=== PATIENT | female | born 1965 | race Caucasian/White ===

== ENCOUNTER 2020-07-11 18:30 | Emergency (ER) | payer OTHER, SELFPAY ==
[2020-07-11 18:37] VITALS: BP 211/101; PULSE 101
[2020-07-11 18:45] VITALS: BP 162/86; PULSE 88; RESP 18; TEMP 36.4; O2SAT 97; BMI 38.7
[2020-07-11 20:21] VITALS: RESP 17
[2020-07-11] MEDS: predniSONE 20 MG TABLET 60 MG PO (20:21)
[2020-07-11] MEDS: Morphine Sulfate 4 MG/ML CARTRIDGE IVPUSH (20:21)
[2020-07-11] MEDS: Lidocaine 4 % Patch ADH..PATCH 2 PATCH TRANSDERMA (20:23)
[2020-07-11 20:35] VITALS: BP 155/57; PULSE 87; RESP 17; O2SAT 96
--- NOTE | 2020-07-11 20:48 | ED.BACK ---
HPI - Back Pain/Injury General Chief Complaint: Back Pain/Injury Stated Complaint: back pain Time Seen by Provider: 07/11/20 19:58 Source: patient, family, EMS and RN notes reviewed Mode of arrival: ambulatory Limitations: no limitations History of Present Illness HPI Narrative: 55-year-old female here today for complaints of lower back pain. Patient was seen at [facility] yesterday where she had MRI done. PCPs notes state that patient will need referral to Neurosurgery for disc herniations. Patient denies urinary or fecal incontinence, reports to have some tingling to her bilateral lower extremities. Denies any fever or chills. Denies any trauma since yesterday. Patient was given script for gabapentin, Percocet and cyclobenzaprine. She has been taking Percocet every 4 hours with some relief. Reports that cyclobenzaprine and gabapentin not helping. Denies any other symptoms. Related Data Previous Rx's Medication Instructions Recorded camphor-methyl salicyl-menthol 1 patch TOPICAL DAILY 5 Days ea 07/11/20 [Salonpas] prednisone 60 mg PO DAILY #12 tab 07/11/20 Allergies Allergy/AdvReac Type Severity Reaction Status Date / Time doxycycline AdvReac Depression Verified 07/11/20 19:04 Review of Systems Review of Systems: Constitutional : No Weight loss, No Fever, No Chills, No Night Sweats, No Fatigue, No Malaise ENT/Mouth : No Hearing loss, No Ear Pain, No Nasal Congestion, No Sinus Pain, No Hoarseness, No sore throat, No Rhinorrhea, No Swallowing Difficulty Eyes: No Eye Pain, No Swelling, No Redness, No Foreign Body, No Discharge, No Vision Changes Cardiovascular : No Chest Pain, No SOB, No Dyspnea on Exertion, No Orthopnea, No Edema, No Palpitations Respiratory : No Cough, No Sputum, No Wheezing, No Smoke Exposure, No Dyspnea Gastrointestinal : No Nausea, No Vomiting, No Diarrhea, No Constipation, No abdominal Pain, No Hematochezia, No Melena Genitourinary : no irregular bleeding, No Dysuria, No Urinary Frequency, No Hematuria, No Urinary Incontinence, No Urgency, No Flank Pain, No Urinary Flow Changes, No Hesitancy Musculoskeletal : No joint pain, No Myalgias, No Joint Swelling Skin : No Skin Lesions, No rash Neuro : No Weakness, tingling to bilateral lower extremities, No Paresthesias, No Loss of Consciousness, No Dizziness, No Headache Psych : No Anxiety/Panic, No Depression, No SI/HI/AH/VH, No Social Issues, Heme/Lymph: No Bruising, No Bleeding,No Lymphadenopathy Endocrine : No Polyuria, No Polydipsia, No Temperature Intolerance Yes all other systems are reviewed and are negative [facility], [facility] Past Medical History Medical History (Updated 07/12/20 @ 01:03 by Carrie Benjamin [facility]) No known health problems Social History Social History Advance Directives: No Advance Directives Information Provided: Yes Physical Exam Vital Signs: Vital Signs: Last Vital Signs Temp 97.2 F 07/11/20 22:28 Pulse 84 07/11/20 22:28 Resp 18 07/11/20 22:28 BP 137/75 07/11/20 22:28 Pulse Ox 96 07/11/20 22:28 Body Mass Index 38.7 Const: General: cooperative, healthy appearing and comfortable Nutritional Appearance: average body habitus Orientation/consciousness: patient oriented x3 Limitations: no limitations HENMT: Head: Yes normal to inspection Ears: hearing grossly normal bilaterally General nose exam: Normal external nose present Face and sinus: Yes normal facial exam Mouth: Normal oral and palatal mucosa present Throat: Yes posterior oropharynx normal Eyes: General: appearance normal, both eyes and all related structures Eyelids: Yes eyelids normal Conjunctivae: conjunctivae normal Sclerae: sclerae normal Pupils: Equal, round and reactive pupils present Neck: Neck: Yes normal visual inspection, Yes full ROM, Yes no lymphadenopathy, Yes trachea midline and Yes supple Thyroid: Thyroid normal Lymphatic: no lymphadenopathy noted Chest: Chest palpation & inspection: normal inspection of the chest Resp: Effort & Inspection: normal respiratory effort and able to speak in complete sentences Auscultation: clear to auscultation bilaterally Cardio: Rate: regular rate Rhythm: regular rhythm Peripheral pulses: Peripheral pulses 2+ throughout GI: Inspection: Yes normal to inspection and No distended Palpation (GI): No hepatosplenomegaly present and No Rebound tenderness present Percussion: Yes normal to percussion Auscultation: normal bowel sounds Back/Spine/Pelvis: Cervical Spine: cervical ROM normal and No cervical muscular tenderness Thoracic/Lumbar Spine: thoracic and lumbar spine normal to inspection Sacroiliac joints: bilaterally (Tenderness) Skin: General skin exam: no rashes or lesions noted, elasticity normal and turgor normal Neuro: General: patient oriented x3 Cranial nerves: Yes Equal, round and reactive pupils present Extrem: General: Yes normal to inspection, Yes full ROM and Yes capillary refill normal Psych: Appearance: grossly normal Mental Status: mental status grossly normal Speech and movement: Normal speech and movement present Affect: normal affect Attitude: cooperative Thought process: Normal thought process present Insight: Good insight present (Psych) Course Course Course Narrative: Patient had MRI done at [facility] yesterday. Her PCP sent her a message via portal stating that she will need to see Neurosurgery disc herniation. Patient's pain is more in sacral iliac joint, mild tenderness. Reports tingling in bilateral lower extremities denies any numbness. I will treat her pain with morphine, patient already received dose of Toradol in the ambulance. Will hold their lidocaine can be applied to SI joints bilaterally. I will start her on prednisone. Will obtain urine sample to see if there is any infection. Reevaluation(s) Reevaluation #1: Urine negative for leukocyte, blood or ketones. Patient reports relief after morphine and lidocaine patches. Patient reports that since she has been taking oxycodone she has been constipated. Patient was educated to take docusate sodium and or senna to help her move her bowels. I have discussed with patient plan for discharge. Patient will be discharged home on prednisone as well as with lidocaine patches. Patient was encouraged to increase fluids to promote bowel movements. Patient educated to look for symptoms of bladder incontinence or bowel incontinence. Patient will follow-up with her PCP. MDM - Back Pain/Injury Lab Data Labs: Lab Results 07/11/20 Range/Units 21:03 Urine Color YELLOW Urine Appearance CLEAR Urine pH 5.5 (5.0-8.0) Ur Specific [place] 1.020 (1.005-1.025) Urine Protein NEG (NEG-TRACE) MG/DL Urine Glucose (UA) NEG (NEG) MG/DL Urine Ketones NEG (NEG) MG/DL Urine Blood NEG (NEG) Urine Nitrite NEG (NEG) Ur Leukocyte Esterase NEG (NEG) Discharge Plan Discharge Clinical Impression: Lumbar radiculopathy Strain of lumbar region Qualifiers: Encounter type: initial encounter Qualified Code(s): S39.012A - Strain of muscle, fascia and tendon of lower back, initial encounter Patient Disposition: Home, Self-Care Instructions: Musculoskeletal Pain (ED) Additional Instructions: You were treated here today for sacral iliac joint tenderness. Your urine test was negative. Please follow-up with your PCP and neural surgery as recommended by your primary care provider. You were given script for prednisone. Apply lidocaine to affected areas. Use stool softeners like Colace and Senokot to promote bowel movements. Medication that you are taking (Percocet) is constipating. Please return to emergency department if you will experience any concerning symptoms or your symptoms get worse. Prescriptions: New Salonpas 3.1-10-6 % adhesive patch,medicated 1 patch topical DAILY 5 Days RF: 0 prednisone 20 mg tablet 60 mg PO DAILY Qty: 12 RF: 0 Interventions: ED Discharge Assessment Last Done: 07/11/20 23:06 Discharge Date/Time: 07/11/20 23:07
[2020-07-11 21:14] LABS: Glucose Urine UA NEG (NEG); Leukocyte Esterase Urine NEG (NEG); Nitrite Urine NEG (NEG); PH 5.5 (5.0-8.0); Urine Blood NEG (NEG); Urine Ketones NEG (NEG); Urine Protein NEG (NEG-TRACE)
[2020-07-11 21:15] LABS: Appearance Urine CLEAR; Color Urine YELLOW
[2020-07-11 22:28] VITALS: BP 137/75; PULSE 84; RESP 18; TEMP 36.2; O2SAT 96
== END 2020-07-11 23:07 | disposition home or self-care (01) ==
PROVIDERS: Nurse Practitioner Family; Emergency Provider Internal Medicine
DX: M54.16 Radiculopathy, lumbar region (principal); S39.012A Strain of muscle, fascia and tendon of lower back, initial encounter; X58.XXXA Exposure to other specified factors, initial encounter; Y93.9 Activity, unspecified; Y92.9 Unspecified place or not applicable; Y99.9 Unspecified external cause status
CPT/HCPCS: 81003; 96372; 96374; 99284; J2270